=== PATIENT | female | born 1970 | race Two or more races ===

== ENCOUNTER 2016-10-17 02:30 | Inpatient (IN) | payer MEDICARE ==
[2016-10-17 03:14] VITALS: BP 115/73
[2016-10-17] MEDS ORDERED: Albuterol/Ipratropium Neb 3 ML AERS HHN ONE ×3 (08:59→15:42)
[2016-10-17] MEDS ORDERED: Morphine Sulfate 2 mg/mL 1mL Syr ONE (09:00)
[2016-10-17] MEDS ORDERED: methylPREDNISolone SS 40 mg Vial ONE ×2 (09:01→16:57)
[2016-10-17] MEDS ORDERED: guaiFENesin 200 MG/10 ML UDC PO PRN (11:49)
[2016-10-17] MEDS ORDERED: Morphine Sulfate 2 mg/mL 1mL Syr IVP PRN (11:56)
[2016-10-17] MEDS ORDERED: Levofloxacin 750mg/150mL 750 MG/150 ML BAG IV SCH (12:00)
[2016-10-17 12:12] LABS: HEMATOCRIT 33.7 % (35.0-45.0); HEMOGLOBIN 11.2 gm/dL (11.7-15.5); MEAN CELL VOLUME 86.6 fl (81-100); MEAN CORPUSCULAR HEMOGLOBIN 28.7 pg (27.0-31.0); MEAN CORPUSCULAR HGB CONC 33.1 pg (28.0-36.0); MEAN PLATELET VOLUME 7.6 fl; PLATELET COUNT 416 Th/cmm (150-400); RED BLOOD COUNT 3.89 Mil/cmm (3.80-5.10); RED CELL DISTRIBUTION WIDTH 13.4 % (11.5-20.0)
[2016-10-17] MEDS ORDERED: Sodium Chloride 0.9% 1,000 ML IV SCH (12:22)
[2016-10-17 12:27] LABS: pH 7.48 (7.35-7.45)
[2016-10-17 12:28] LABS: ABG SOURCE Arterial; ALLEN TEST YES; BE(B) 3.3 mmol/L (-3.0-3.0); CRITICAL VALUES REPORTED BY SH; FIO2 21; HCO3 26.8 mmol/L (20.0-26.0)
[2016-10-17] MEDS: methylPREDNISolone SS 40 mg Vial IVP SCH ×2 (12:29→17:43)
[2016-10-17 12:32] LABS: ALB/GLOB RATIO 1.1 (1.0-1.8); ALKALINE PHOSPHATASE 82 U/L (34-104); ANION GAP 11.7 (7.0-16.0); BILIRUBIN,TOTAL 0.2 mg/dL (0.3-1.0); BUN - UREA NITROGEN 15 mg/dL (7-25); CALCIUM SERUM 8.8 mg/dL (8.6-10.3); CARBON DIOXIDE 24.6 mEq/L (21.0-31.0); CHLORIDE 102 mEq/L (98-107); CREATININE - SERUM 0.5 mg/dL (0.6-1.2); GLUCOSE 103 mg/dL (70-105); POTASSIUM SERUM 4.3 mEq/L (3.5-5.1); SGOT 19 U/L (13-39); SGPT/ALT 23 U/L (7-52); SODIUM SERUM 134 mEq/L (136-145)
[2016-10-17] MEDS: Pantoprazole 40 mg/Packet PO SCH (12:33)
[2016-10-17 12:44] LABS: WHITE BLOOD COUNT 11.8 Th/cmm (4.8-10.8)
[2016-10-17] MEDS: Albuterol/Ipratropium Neb 3 ML AERS HHN PRN ×2 (12:46→15:48)
[2016-10-17 12:57] LABS: BAND NEUTROPHILE 10 % (0-10); NEUTROPHILS 76 % (40-80); TOTAL CELLS COUNTED 100
[2016-10-17 12:58] LABS: ANISOCYTOSIS 1+; PLATELET ESTIMATE INCREASED PLATELETS (NORMAL); PLATELET MORPHOLOGY NORMAL (NORMAL)
--- NOTE | 2016-10-17 15:36 | History & Physical ---
REASON FOR ADMISSION: Asthma exacerbation, right lower lobe pneumonia, smoker, schizophrenia. HISTORY OF PRESENT ILLNESS: This 46-year-old female called paramedics and taken to the [facility]. The patient wish to stay with dr. Jose Juan Mijares , so transferred to the [facility]. The patient's main complaint is shortness of breath, cough, phlegm coming out. The patient states that she was sleeping and all of a sudden got short of breath, could not breathe, called paramedics. In the Emergency Room, work up includes chest x-rays, which revealed perihilar infiltrates and bilat basal infiltrate, elevated WBC count. The patient received 2 liters of IV fluids and IV Levaquin at [place], back to back handheld nebulizer treatments X 3, but persistent wheezing, so sent to the [facility] for further admission. The patient is currently sitting up at edge with 2 liters of oxygen and complaining of shortness of breath, still having a significant chest congestion, phlegm color is clear, whitish to the green color, no blood in it (no blood in sputum). Denies any vision problem or swallowing problem. Denies any chest pain, chest pressure or palpitations. No abdominal pain, nausea, vomiting, diarrhea or melena. PAST MEDICAL HISTORY: Significant for fibromyalgia, narcotic dependence. The patient states that she already weaned off all narcotics and hypnotics. The patient was seen in the clinic because of shortness of breath last week and given prednisone 60 mg once a day and then in a tapering fashion, but still continuously progressively got worse. ALLERGIES: ASPIRIN, IBUPROFEN, NAPROXEN, CEFTRIAXONE. SOCIAL HISTORY: Still smoking, FAMILY HISTORY: Noncontributory. REVIEW OF SYSTEMS: The patient having chronic pain and waiting to see Dr. Grant. The patient is off of all narcotics and all hypnotics. The patient still get very bad panic attack and psychiatric related diseases for which the patient is going to see the psychiatrist. PHYSICAL EXAMINATION: VITAL SIGNS: Height 1.57 meters, weight 97.7 kg, BMI 39.4, temperature 98, pulse 103, respiratory rate 20, blood pressure is 115/73, saturation 98% on 2 liters. HEENT: Unremarkable. NECK: Short and thick. LUNGS: Significant for expiratory rhonchi all over. CVS: S1 and S2 normal limits. Sinus tachyarrhythmia present. ABDOMEN: Soft, obese, otherwise benign. EXTREMITIES: No leg edema. CENTRAL NERVOUS SYSTEMS: Cranial nerves intact. Nonfocal. MUSCULOSKELETAL: No clubbing, cyanosis, or synovitis. LABORATORY TESTS: WBC 11.8, hemoglobin 11.2, MCV 87, platelet of 416K, neutrophil 76. Room air ABG, pH 7.48, pCO2 36, pO2 59 and saturation 92%. Sodium 134, potassium 4.3, chloride 102, bicarb 25, BUN 15, creatinine 0.5, glucose of 103, and calcium 8.8. Albumin 3.6. TSH 0.55. Liver panel unremarkable. Hemoglobin A1c normal at 4.8. Chest x-ray is reported from the Emergency Room in [place] is lower lobe pneumonia with perihilar pneumonia. ASSESSMENT: 1. Right lower lobe and perihilar pneumonia. 2. Asthma exacerbation. 3. Tobacco dependence. 4. Schizophrenia. 5. Chronic pain syndrome. 6. Fibromyalgia. 7. MULTIPLE ALLERGIES INCLUDING CEFTRIAXONE, IBUPROFEN AND NAPROXEN, ASPIRIN (NONSTEROIDAL). 8. Morbid obesity. 9. Rule out obstructive sleep apnea. We will obtain Pulmonary consult and go from there. 10. Acute respiratory failure secondary to asthma exacerbation and pneumonia. 11. The patient has underlying chronic obstructive sleep apnea, which is not triggered. PLAN: Avoid morphine. The patient is on multiple psychiatric medications including gabapentin 300 b.i.d., trazodone 200 mg at bedtime and Zyprexa 5 in the morning and 10 in the evening and oxcarbazepine (Trileptal). We will continue with those. IV Levaquin will be continued and will go from it. PSYCHIATRIC# [id number] [facility]
--- NOTE | 2016-10-17 17:01 | Admit Criteria Form ---
Admit Criteria Forms - Admit Criteria Diagnosis: PNEUMONIA, COMMUNITY ACQUIRED Clinical Indications for Admission to Inpatient Care ( Place 'X' for any and all applicable criteria): Admission is indicated for ANY ONE of the following (1)(2)(3): [ ]I. Hypoxemia indicated by ANY ONE of the following: [ ]a) Oxygen saturation less than 90% while breathing room air [ ]b) PO2 less than 60 mm Hg (8.0 kPa) while breathing room air [ ]c) Chronic lung disease with significant deterioration from baseline oxygenation [ ]II. Appropriate diagnostic testing and treatment unavailable in outpatient or recovery facility (eg,testing or infection control measures unavailable(10) [ ]III. Moderate-risk or high-risk category patients (Pneumonia Severity Index (PSI) class IV or V, or CURB-65 score of 3 or greater). [ ]IV. Outpatient treatment failure as indicated by ANY ONE of the following(9) : [ ]a) Failure to respond to antibiotic (eg, resistant organism) [ ]b) Clinically significant adverse effects from medication (eg, vomiting) [ ]c) Complications of pneumonia (eg, empyema, bacteremia) [ ]d) Significant worsening of comorbid cond necessitating inpatient care (eg, chronic heart failure) [ ]V. Intermediate-risk category patients (eg, PSI class III or CURB-65 score 2) who do not improve with initial therapy and observation. [ ]. Immunocompromised patients (eg, AIDS, chronic steroid use) at moderate or high risk based on clinical evaluation. [ ]VII. Complicated pleural effusions (eg, exudative, loculated) [ ]VIII.Hemodynamic instability [ ] IX. Altered mental status that is severe or persistent. [ ]X. Dehydration that is severe or persistent. [ ]XI. Bacteremia [X]XII. Respiratory finding (eg. tachypnea) that do not respond to outpatient or observation care treatment Extended stay beyond goal length of stay may be needed for (20) [ ]a) Unclear diagnosis [ ]b) Pleural disease [ ]c) Severe pneumonia or treatment failure (25 [ ]d) Respiratory failure (anticipate invasive or noninvasive ventilatory support) [ ]e) Abnormal serum electrolytes (serum Na concentration less than 135 mEq/L (mmol/L) (32)(33) [ ]f) Clinically significant comorbid illness (eg, heart failure, atrial fibrillation with rapid heart rate, alcohol withdrawal, renal insufficiency)(34)(35) [ ]g) Comorbid acute exacerbation of COPD(36) [ ]h) Concomitant diagnosis of malignancy that may be associated with malnutrition, immunologic impairment, or bronchial obstruction. [ ]i) Concomitant altered mental status [ ]j) Culture-identified Gram-negative or antibiotic-resistant organism (eg, Pseudomonas, methicillin-resistant Staphylococcus aureus)(30) [ ]k) Healthcare-associated pneumonia The original [facility] content created by [employer] has been revised. The portions of the content which have been revised are identified through the use of italic text or in bold, and [facility] has neither reviewed nor approved the modified material. All other unmodified content is copyright [facility]. Please see references footnoted in the original [facility] [employer] edition 2016 Admit Criteria Met?: Yes
[2016-10-17] MEDS: Lidocaine 5% Patch TD SCH (17:45)
[2016-10-17] MEDS: Albuterol/Ipratropium Neb 3 ML AERS HHN SCH (19:51)
[2016-10-17] MEDS: Budesonide 0.5 Mg/2 mL Ud HHN SCH (19:52)
[2016-10-18] MEDS: methylPREDNISolone SS 40 mg Vial IVP SCH ×5 (00:29→23:29)
[2016-10-18 06:20] LABS: % BASOPHILS 0.2 % (0.0-2.0); % EOSINOPHILS 0.1 % (0.0-5.0); % LYMPHOCYTES 9.5 % (20.0-50.0); % MONOCYTES 2.7 % (2.0-10.0); % NEUTROPHILS 87.5 % (40.0-80.0); HEMATOCRIT 32.1 % (35.0-45.0); HEMOGLOBIN 10.9 gm/dL (11.7-15.5); MEAN CELL VOLUME 85.9 fl (81-100); MEAN CORPUSCULAR HGB CONC 33.8 pg (28.0-36.0); MEAN PLATELET VOLUME 8.1 fl; NEUTROPHILE ABSOLUTE 5.3 Th/cmm (1.8-8.0); PLATELET COUNT 356 Th/cmm (150-400); RED BLOOD COUNT 3.74 Mil/cmm (3.80-5.10); RED CELL DISTRIBUTION WIDTH 13.6 % (11.5-20.0)
[2016-10-18] MEDS: Albuterol/Ipratropium Neb 3 ML AERS HHN SCH ×5 (06:32→23:27)
[2016-10-18] MEDS: Budesonide 0.5 Mg/2 mL Ud HHN SCH ×2 (06:32→19:39)
[2016-10-18 06:45] LABS: ALKALINE PHOSPHATASE 77 U/L (34-104); AMYLASE SERUM 36 U/L (29-103); ANION GAP 10.3 (7.0-16.0); BILIRUBIN,TOTAL 0.2 mg/dL (0.3-1.0); BUN - UREA NITROGEN 15 mg/dL (7-25); BUN/CREATININE RATIO 37.5; CALCIUM SERUM 8.7 mg/dL (8.6-10.3); CARBON DIOXIDE 24.9 mEq/L (21.0-31.0); CHLORIDE 105 mEq/L (98-107); CREATININE - SERUM 0.4 mg/dL (0.6-1.2); GLUCOSE 135 mg/dL (70-105); LIPASE 9 U/L (11-82); POTASSIUM SERUM 4.2 mEq/L (3.5-5.1); SGOT 19 U/L (13-39); SGPT/ALT 26 U/L (7-52); SODIUM SERUM 136 mEq/L (136-145)
[2016-10-18 07:36] LABS: WHITE BLOOD COUNT 6.1 Th/cmm (4.8-10.8)
[2016-10-18] MEDS: Lidocaine 5% Patch TD SCH (09:17)
[2016-10-18] MEDS: Pantoprazole 40 mg/Packet PO SCH (09:17)
[2016-10-18] MEDS: Levofloxacin IVPB 750mg/150mL Premix Bag IV SCH (09:19)
[2016-10-18] MEDS ORDERED: Sodium Chloride 0.9% 1,000 ML IV SCH (13:04)
[2016-10-18] MEDS ORDERED: Budesonide 0.5 Mg/2 mL Ud HHN SCH (19:00)
[2016-10-19] MEDS: Albuterol/Ipratropium Neb 3 ML AERS HHN PRN (03:04)
[2016-10-19] MEDS: methylPREDNISolone SS 40 mg Vial IVP SCH ×3 (06:01→18:05)
--- NOTE | 2016-10-19 06:28 | Progress Notes ---
PROBLEM LIST: 1. Acute exacerbation of asthmatic bronchitis with COPD. 2. Possibly asthmatic bronchitis. 3. GE reflux. SYMPTOMS: Nil. The patient is feeling a little better, still complains of wheezing and some coughing, some expectoration, not in significant discomfort. PHYSICAL EXAMINATION: VITAL SIGNS: Temperature is 98.8, blood pressure 120/70, saturation 100% on 2 liters of oxygen. NECK: Veins could not be visualized. CHEST: Shows diminished air entry with occasional rhonchi. HEART: Regular. EXTREMITIES: Shows no peripheral edema. ASSESSMENT: The patient may be little better respiratory [place] with asthmatic bronchitis with history of tobacco dependence, etc. PLANS AND SUGGESTIONS: We will go ahead and continue current treatment and tobacco grief counsellor and tobacco quitting advised, etc. was discussed at great length and we will see how she does and go from there. JOB# [id number]
[2016-10-19 07:22] LABS: % BASOPHILS 0.6 % (0.0-2.0); % EOSINOPHILS 0.2 % (0.0-5.0); % LYMPHOCYTES 13.9 % (20.0-50.0); % MONOCYTES 5.2 % (2.0-10.0); % NEUTROPHILS 80.1 % (40.0-80.0); HEMATOCRIT 31.6 % (35.0-45.0); HEMOGLOBIN 10.7 gm/dL (11.7-15.5); MEAN CELL VOLUME 85.2 fl (81-100); MEAN CORPUSCULAR HEMOGLOBIN 28.8 pg (27.0-31.0); MEAN CORPUSCULAR HGB CONC 33.8 pg (28.0-36.0); NEUTROPHILE ABSOLUTE 4.1 Th/cmm (1.8-8.0); PLATELET COUNT 407 Th/cmm (150-400); RED BLOOD COUNT 3.71 Mil/cmm (3.80-5.10); RED CELL DISTRIBUTION WIDTH 13.7 % (11.5-20.0); WHITE BLOOD COUNT 5.1 Th/cmm (4.8-10.8)
[2016-10-19 07:39] LABS: ALB/GLOB RATIO 1.1 (1.0-1.8); ALKALINE PHOSPHATASE 69 U/L (34-104); BILIRUBIN,TOTAL 0.2 mg/dL (0.3-1.0); BUN - UREA NITROGEN 21 mg/dL (7-25); CALCIUM SERUM 8.7 mg/dL (8.6-10.3); CARBON DIOXIDE 26.3 mEq/L (21.0-31.0); CHLORIDE 103 mEq/L (98-107); CREATININE - SERUM 0.5 mg/dL (0.6-1.2); GLUCOSE 127 mg/dL (70-105); POTASSIUM SERUM 4.3 mEq/L (3.5-5.1); SGOT 13 U/L (13-39); SGPT/ALT 21 U/L (7-52); SODIUM SERUM 135 mEq/L (136-145)
[2016-10-19] MEDS: Lidocaine 5% Patch TD SCH (08:47)
[2016-10-19] MEDS: Budesonide 0.5 Mg/2 mL Ud HHN SCH ×2 (08:53→19:44)
[2016-10-19] MEDS: Albuterol/Ipratropium Neb 3 ML AERS HHN SCH ×4 (08:53→19:44)
[2016-10-19] MEDS: Pantoprazole 40 mg/Packet PO SCH (08:56)
--- NOTE | 2016-10-19 09:24 | Diagnostic Imaging Report ---
Chest 2 views INDICATION: Shortness of breath COMPARISON: None FINDINGS: Increased interstitial lung markings are seen with no focal consolidation or pleural effusions. Heart size is normal. Degenerative changes of the spine are noted. IMPRESSION: Increased interstitial lung markings. No focal consolidation identified.
[2016-10-19] MEDS: Levofloxacin IVPB 750mg/150mL Premix Bag IV SCH (10:42)
[2016-10-19 12:18] LABS: HCO3 27.6 mEq/L (20.0-26.0); pH 7.45 (7.35-7.45)
[2016-10-19 12:19] LABS: ABG SOURCE Arterial; ALLEN TEST POSITIVE; FIO2 21
[2016-10-19 12:20] LABS: CRITICAL VALUES REPORTED BY CS
[2016-10-20] MEDS: methylPREDNISolone SS 40 mg Vial IVP SCH ×2 (00:15→06:51)
--- NOTE | 2016-10-20 06:51 | Progress Notes ---
PROBLEM LIST: 1. Acute asthmatic bronchitis. 2. Chronic obstructive pulmonary disease. 3. Tobacco dependence. SYMPTOMS: The patient may be feeling a little better, but overall still complains of ____ shortness of breath and wheezing. PHYSICAL EXAMINATION: VITAL SIGNS: The patient's recorded vital signs, temperature is 98.6 and blood pressure 122/82. NECK: JVP not visualized. CHEST: Shows occasional rhonchi with diminished air entry. HEART: Regular. ABDOMEN: Soft and nontender. LABORATORY DATA: White count is 5.1 and hemoglobin is 10.7. Blood gases pO2 is 92 on room air. IMAGING STUDIES: Chest x-ray appears to be clear. ASSESSMENT: The patient clinically seemingly is slightly better with better improvement in oxygenation, etc. PLANS AND SUGGESTIONS: We will await for another 24-48 hours. If is reasonably stable, we can discharge and will follow up as an outpatient. JOB# [id number]
[2016-10-20] MEDS: Albuterol/Ipratropium Neb 3 ML AERS HHN SCH ×4 (07:22→18:35)
[2016-10-20] MEDS: Budesonide 0.5 Mg/2 mL Ud HHN SCH ×2 (07:29→18:35)
--- NOTE | 2016-10-20 08:25 | Progress Notes ---
REASON FOR CONSULTATION: Shortness of breath. CONSULT NOTE: This is a 46-year-old female. Basically, patient is known to me for a long time and subsequently was moved out of this area for reason not clear, but apparently the patient has come back to our practice and I was supposed to see her about a week from this admission in this hospital. Apparently, the patient got sick with more shortness of breath, coughing and wheezing, which has started about 3-4 days prior to coming to the hospital. Then, apparently it got more worse and the patient subsequently went to the local hospital because of the contracted and/or primary care physician, the patient was transferred up here for further care and necessary treatment. The patient has been coughing, some wheezing, no hemoptysis. No chest pain and feels the lungs are getting very tight. Does not recall of fever, etc., though at times, a sputum was green color and yellowish color. No other problems related to the swelling of the legs, PND, orthopnea, slightly dysphagia. PAST MEDICAL HISTORY: History of fibromyalgia, history of narcotic dependence, also history of possibly schizophrenia. ALLERGIES: POSSIBLY ASPIRIN, NAPROSYN AND CEFTRIAXONE. SMOKING HISTORY: One pack in the last 2-3 days, has been smoking for a long time. There is also chronic pain syndrome as well. PHYSICAL EXAMINATION: GENERAL: This is a middle-aged looking female, awake, alert, oriented, audible wheezing, not in acute respiratory distress. VITAL SIGNS: Temperature is 98, pulse is 110, respirations 20-24, blood pressure 120/70, saturation is okay on 2 liters per minute. HEENT: Examination of the head is essentially unremarkable. Pupils appear to be equal and reacting to light. Oral cavity shows small oropharyngeal opening. NECK: No nodes in the neck could be palpated. CHEST: Shows scattered wheezing with diminished air entry. HEART: Regular and tachycardic. ABDOMEN: Soft, nontender. EXTREMITIES: Shows no peripheral edema. ASSESSMENT: 1. The patient clinically appears to be reasonably acute asthmatic bronchitis with possibly early chronic obstructive pulmonary disease ____. 2. ____ of allergy with a component of previous smoking history affecting the lung. 3. Chronic pain syndrome. 4. Suspect obstructive sleep apnea syndrome. PLANS AND SUGGESTIONS: We will give high dose of inhaled steroid, high dose IV steroid, empiric antibiotic, get a sputum culture and we will see how she does in next few days and go from there. JOB# [id number]
[2016-10-20] MEDS: Pantoprazole 40 mg EC Tab PO SCH ×2 (09:00→16:27)
[2016-10-20] MEDS: Lidocaine 5% Patch TD SCH (09:00)
[2016-10-20] MEDS: Levofloxacin IVPB 750mg/150mL Premix Bag IV SCH (09:01)
--- NOTE | 2016-10-20 20:41 | Progress Notes ---
PROBLEM LIST: 1. Acute asthmatic bronchitis, severe. 2. Chronic bronchial asthma. 3. History of opioid dependence, depression, history of previous psychiatric illness. 4. Suspect obstructive sleep apnea syndrome. SYMPTOMS: The patient is feeling a lot better, breathing is much better. She is able to breathe around without any significant shortness of breath. PHYSICAL EXAMINATION: VITAL SIGNS: Temperature is 97, her pulse is in 80s, respirations 18, saturation 99 on room air. ENT: Shows no new changes. CHEST: Shows markedly improving bronchospasm with occasional wheezing with diminished air entry. HEART: Regular. ABDOMEN: Soft, nontender. EXTREMITIES: Shows no peripheral edema. ASSESSMENT: The patient is clinically remarkably improving. PLANS AND SUGGESTIONS: We will go ahead and continue current treatment. If she remains stable, possibly discharge plan for tomorrow. JOB# [id number]
[2016-10-20] MEDS ORDERED: methylPREDNISolone SS 40 mg Vial IVP SCH (21:00)
--- NOTE | 2016-10-20 21:10 | Discharge Summary ---
FINAL DIAGNOSES: 1. Pneumonia, which is now resolved. 2. Acute respiratory failure, which has improved now. 3. Acute tracheobronchitis. 4. Exacerbation of asthmatic bronchitis. 5. Tobacco dependence. 6. Schizophrenia. 7. Morbid obesity with BMI of 39.4. 8. Fibromyalgia. 9. Currently in a sober living, off all hypnotics and narcotics. 10. Normochromic and normocytic anemia. 11. Hyperglycemia secondary to steroid, which now resolving. HOSPITAL COURSE AND IMPORTANT LAB: A 46-year-old female, who was seen approximately a week before this admission in clinic with shortness of breath and coughing and started on prednisone and given her metered-dose inhaler ( steroid) from clinic prescription as the patient was only taking ProAir as needed at that time. The patient subsequently woke up with severe shortness of breath, paramedics were called and admitted at the [facility] Emergency Room. X-ray there revealed pneumonia and a perihilar infiltrate and bibasilar pneumonia. The patient also had elevated WBC count with a significant amount of expiratory rhonchi which did not improve after back to back breathing treatment, IV antibiotic, and IV Solu-Medrol, and fail outpatient treatments so the patient was transferred to [facility] on 10/17/2016for a admit. The patient was started on Solu- Medrol 40 IV push q.6h. and nebulizer q.4h and q.2h p.r.n. with DuoNeb and Pulmicort and the patient had Pulmonary consult. The patient also was given empirically IV Levaquin as subsequent chest x-ray on 10/19/2016 revealed interstitial markings increased otherwise no definite infiltrate. The patient's initial ABG was pH 7.48, pCO2 of 36, pO2 of 59 and bicarb 27, saturation was 92% on room air on admission. Subsequent ABG on 10/19/2016, pH 7.45, pCO2 of 37, pO2 of 92, bicarb 29, and saturation 98%. The patient's WBC count was 11.8, now decreased to 5.1. Hemoglobin 10.7, MCV 85, and platelet of 407,000, neutrophil 80. Sodium 135, potassium 4.3, chloride 103, bicarb 26, BUN 21, creatinine 0.5, glucose 127, calcium 8.7, albumin 3.2. The patient had a significant amount of shortness of breath, so echocardiogram done, that report is still pending. The patient will follow up with Dr. Rgoer Mijares, intranet specialist as an outpatient and will arrange a split sleep study. Meanwhile, I advised the patient to decrease weight, avoid tobacco. The patient's pain is controlled with lidocaine 5% patch and follow up with Dr. Dr. Grant, painter touch up arranged. I advised the patient to stay away from narcotics, hypnotics, and all muscle relaxants. discharge on 10/21/16. pulmoaid machine prescription and duoneb UD QID # 100. CONDITION ON DISCHARGE: Stable. See the discharge prescription. ( prednison 20 mg #14, levaquine#5, protonix 40mg # 30. lopramide prn , lidocaine patch 5% # 30). The patient will follow up with Dr. Roger Mijares in 1-2 weeks. JOB# [id number] [facility]
[2016-10-21] MEDS: Budesonide 0.5 Mg/2 mL Ud HHN SCH (06:37)
[2016-10-21] MEDS: Albuterol/Ipratropium Neb 3 ML AERS HHN SCH ×2 (06:37→11:12)
[2016-10-21 07:08] LABS: % BASOPHILS 0.5 % (0.0-2.0); % EOSINOPHILS 0.2 % (0.0-5.0); % NEUTROPHILS 60.3 % (40.0-80.0); HEMOGLOBIN 12.6 gm/dL (11.7-15.5); MEAN CELL VOLUME 85.6 fl (81-100); MEAN CORPUSCULAR HEMOGLOBIN 28.4 pg (27.0-31.0); MEAN CORPUSCULAR HGB CONC 33.2 pg (28.0-36.0); NEUTROPHILE ABSOLUTE 4.2 Th/cmm (1.8-8.0); PLATELET COUNT 419 Th/cmm (150-400); RED BLOOD COUNT 4.42 Mil/cmm (3.80-5.10); RED CELL DISTRIBUTION WIDTH 13.4 % (11.5-20.0)
[2016-10-21 07:17] LABS: HEMATOCRIT 37.9 % (35.0-45.0)
[2016-10-21] MEDS: Levofloxacin IVPB 750mg/150mL Premix Bag IV SCH (08:28)
[2016-10-21] MEDS: Lidocaine 5% Patch TD SCH (08:28)
[2016-10-21] MEDS: Pantoprazole 40 mg EC Tab PO SCH (08:30)
[2016-10-21] MEDS ORDERED: methylPREDNISolone SS 40 mg Vial IVP SCH (09:00)
--- NOTE | 2016-10-22 15:33 | Cardiology ---
The patient of Dr. Jose Mijares. M-MODE ECHOCARDIOGRAM: ____M-mode echo technically poor, 2D echo only structure visualized in apical 4-chamber view, which showed normal sized left ventricle, left atrium, right ventricle, right atrium, tricuspid and mitral valve. Ejection fraction 55%. CONCLUSION: Technically poor echo. Ejection fraction 55%. Doppler study shows mild tricuspid regurgitation. JOB# [id number]
== END 2016-10-21 12:20 | disposition home or self-care (01) | DRG 193 ==
LOC: MSI 02:30 → TELE 02:30 → MSI 14:59
PROVIDERS: ADMIT Internal Medicine; ATTEND Internal Medicine
DX: J18.9 Pneumonia, unspecified organism (principal); J96.00 Acute respiratory failure, unspecified whether with hypoxia or hypercapnia; J45.901 Unspecified asthma with (acute) exacerbation; F20.9 Schizophrenia, unspecified; E66.01 Morbid (severe) obesity due to excess calories; F17.210 Nicotine dependence, cigarettes, uncomplicated; G89.4 Chronic pain syndrome; K21.9 Gastro-esophageal reflux disease without esophagitis; M79.7 Fibromyalgia; G47.33 Obstructive sleep apnea (adult) (pediatric); F41.0 Panic disorder [episodic paroxysmal anxiety]; Z88.1 Allergy status to other antibiotic agents; Z88.8 Allergy status to other drugs, medicaments and biological substances; Z88.4 Allergy status to anesthetic agent; Z68.39 Body mass index [BMI] 39.0-39.9, adult; Z91.040 Latex allergy status
CPT/HCPCS: 36415-UA; 36600-90; 71020-TC; 80053-TC; 82150-TC; 82803-TC; 83036-90; 83690-TC; 83735-TC; 83880-TC; 84443-TC; 84550-TC; 85007-TC; 85025-TC; 85027-TC; 87230-TC; 94640; 94668; 94760; J1956; J2270; J2920; J7030; J7051; Z7610